=== PATIENT | female | born 1975 | race Caucasian/White ===

== ENCOUNTER 2018-03-02 14:42 | Emergency (ER) | payer BC ==
[2018-03-02 15:00] VITALS: BP 132/82
--- NOTE | 2018-03-02 15:17 | UC ---
UC General HPI - HPI Summary HPI Summary: PT C/O A SORE THROAT SINCE YESTERDAY WITH SOME WHITE SPOTS. ALSO NOTES HAS HAD A reyes AND SWOLLEN GLANDS. HX MONO IN 20'S. NO FEVER. R EAR PRESSURE. - History of Current Complaint Hx Obtained From: Patient Hx Last Menstrual Period: 01/31/18 Onset/Duration: Gradual Onset Timing: Constant Pain Intensity: 5 Aggravating: NOTHING Alleviating: NOTHING Associated Signs & Symptoms: Positive: Headache <Alexandria Mchugh - Last Filed: 03/02/18 15:07> <Troy Sloan - Last Filed: 03/02/18 17:53> - History of Current Complaint Chief Complaint: UCGeneralIllness Stated Complaint: SORE THROAT Time Seen by Provider: 03/02/18 15:06 - Allergy/Home Medications Allergies/Adverse Reactions: Allergies Allergy/AdvReac Type Severity Reaction Status Date / Time Penicillins Allergy Hives Verified 03/02/18 15:01 Home Medications: Home Medications Fluticasone NASAL SPRAY 50MCG* [Flonase NASAL SPRAY 50MCG*] 2 spray BOTH NARES DAILY 03/02/18 [History Confirmed 03/02/18] LevoCETirizine TAB (NF) [Xyzal TAB (NF)] 5 mg PO DAILY 03/02/18 [History Confirmed 03/02/18] Norethindrone AC-Eth Estradiol [Loestrin 1.5/30-21 1.5-30 mg-Mcg] 1 tab PO DAILY 03/02/18 [History Confirmed 03/02/18] PMH/Surg Hx/FS Hx/Imm Hx - Additional Past Medical History Additional PMH: allergies, post herpetic neuralgia GI/ History: Gastroesophageal Reflux Psychological History: Depression - Surgical History Surgical History: Yes Surgery Procedure, Year, and Place: R knee orthoscopic, c-sections x3,Rt hand from fracture with plate 1996 - Family History Known Family History: Positive: None - Social History Occupation: Employed Full-time Lives: With Family Alcohol Use: Daily Alcohol Amount: 2-3 glasses of wine Substance Use Type: None Smoking Status (MU): Never Smoked Tobacco - Immunization History Vaccination Up to Date: Yes <Alexandria Mchugh - Last Filed: 03/02/18 15:07> Review of Systems Constitutional: Negative Skin: Negative Eyes: Negative ENT: Sore Throat, Ear Ache Respiratory: Negative Cardiovascular: Negative Gastrointestinal: Negative Genitourinary: Negative Motor: Negative Neurovascular: Negative Musculoskeletal: Negative Neurological: Headache Psychological: Negative Is Patient Immunocompromised?: No All Other Systems Reviewed And Are Negative: Yes <Alexandria Mchugh - Last Filed: 03/02/18 15:07> Physical Exam Triage Information Reviewed: Yes Appearance: Well-Appearing Vital Signs: Initial Vital Signs Temp 99.1 F 03/02/18 14:56 Pulse 85 03/02/18 14:56 Resp 16 03/02/18 14:56 BP 132/82 03/02/18 14:56 Pulse Ox 98 03/02/18 14:56 Vital Signs Reviewed: Yes Eyes: Positive: Conjunctiva Clear ENT: Positive: Pharyngeal erythema, TMs normal, Uvula midline. Negative: Nasal congestion, Nasal drainage, Tonsillar exudate, Trismus, Muffled voice, Hoarse voice Neck: Positive: Supple, Tenderness @ - peritonsilar nodes, Enlarged Nodes @ - peritonsilar Respiratory: Positive: Lungs clear, Normal breath sounds Cardiovascular: Positive: RRR, No Murmur Abdomen Description: Positive: Nontender, No Organomegaly, Soft Bowel Sounds: Positive: Present Musculoskeletal: Positive: ROM Intact Neurological: Positive: Alert Psychological: Positive: Age Appropriate Behavior Skin Exam: Normal <Alexandria Mchugh - Last Filed: 03/02/18 15:07> Vital Signs: Initial Vital Signs Temp 99.1 F 03/02/18 14:56 Pulse 85 03/02/18 14:56 Resp 16 03/02/18 14:56 BP 132/82 03/02/18 14:56 Pulse Ox 98 03/02/18 14:56 <Troy Sloan - Last Filed: 03/02/18 17:53> Diagnostics - Laboratory Diagnostic Studies Completed/Ordered: rapid strep=neg <Alexandria Mchugh - Last Filed: 03/02/18 15:07> Course/Dx - Course Course Of Treatment: strep = neg, tx supportive - Differential Dx - Multi-Symptom Provider Diagnoses: pharyngitis <Alexandria Mchugh Last Filed: 03/02/18 15:07> Discharge - Sign-Out/Discharge Documenting (check all that apply): Discharge/Admit/Transfer - Billing Disposition and Condition Condition: STABLE Disposition: HOME <[email or web address] - Last Filed: 03/02/18 15:07> - Billing Disposition and Condition Condition: STABLE Disposition: HOME <Troy Sloan - Last Filed: 03/02/18 17:53> - Discharge Plan Condition: Stable Disposition: HOME Patient Education Materials: Pharyngitis (ED) Referrals: Devyn Butler MD [Primary Care Provider] - 5 Days Additional Instructions: Per institutional requirements, I have reviewed the chart, however, I was not consulted specifically or made aware of this patient by the above midlevel provider. I did not personally evaluate, interact with , or disposition this patient.
== END 2018-03-02 15:47 | disposition home or self-care (01) ==
LOC: UCCORT 14:42
DX: J02.9 Acute pharyngitis, unspecified (principal); Z88.0 Allergy status to penicillin
CPT/HCPCS: 87651; 99211; G0463

== ENCOUNTER 2018-10-10 09:28 | Emergency (ER) | payer BC ==
[2018-10-10 09:44] VITALS: BP 147/94
[2018-10-10] MEDS ORDERED: Acetaminophen TAB* 325 MG PO ONE (10:51)
--- NOTE | 2018-10-10 10:51 | UC ---
Headache HPI - HPI Summary HPI Summary: Pt presents with c/o sudden onset "horrible ROSS" that began during sexual intercourse yesterday. Pt reports that she has been taking ibuprofen with little to no improvement in ROSS. - History Of Current Complaint Chief Complaint: UCHeadache Stated Complaint: HEADACHE Time Seen by Provider: 10/10/18 10:15 Hx Obtained From: Patient Hx Last Menstrual Period: 09/12/18 ?: No Onset/Duration: Sudden Onset, Lasting Days, Still Present Onset Of Symptoms: Sudden Initially Headache Was: Severe Currently Pain Is: Moderate Pain Intensity: 5 Timing: Constant Character: Sharp, Dull, Throbbing, Pressure Location of Headache: Diffuse Aggravating Factor(s): Bright Lights Allevating Factor(s): Medication - otc ibuprofen helped minimally per pt Associated Signs And Symptoms: Positive: Neck Pain - Risk Factors SAH Risk Factors: Negative Meningitis Risk Factors: Negative SDH Risk Factors: Negative Temporal Arteritis Risk Factors: Female - Allergies/Home Medications Allergies/Adverse Reactions: Allergies Allergy/AdvReac Type Severity Reaction Status Date / Time Penicillins Allergy Hives Verified 10/10/18 09:43 Home Medications: Home Medications Acyclovir* [Zovirax 200 MG CAP*] 200 mg PO DAILY 10/10/18 [History Confirmed 08/18] PMH/Surg Hx/FS Hx/Imm Hx Previously Healthy: Yes - Surgical History Surgical History: Yes Surgery Procedure, Year, and Place: R knee orthoscopic, c-sections x3,Rt hand from fracture with plate 1996 - Family History Known Family History: Positive: Cardiac Disease - Social History Occupation: Employed Full-time Lives: With Family Alcohol Use: Daily Alcohol Amount: 2-3 glasses of wine Substance Use Type: None Smoking Status (MU): Never Smoked Tobacco Have You Smoked in the Last Year: No - Immunization History Vaccination Up to Date: Yes Review of Systems All Other Systems Reviewed And Are Negative: Yes Constitutional: Positive: Negative Skin: Positive: Negative Eyes: Positive: Photophobia ENT: Positive: Negative Respiratory: Positive: Negative Cardiovascular: Positive: Negative Gastrointestinal: Positive: Negative Genitourinary: Positive: Negative Motor: Positive: Negative Neurovascular: Positive: Negative Musculoskeletal: Positive: Negative Neurological: Positive: Headache Psychological: Positive: Negative Is Patient Immunocompromised?: No Physical Exam Triage Information Reviewed: Yes Appearance: Other: - pt is tearful, Vital Signs: Initial Vital Signs Temp 98.5 F 10/10/18 09:40 Pulse 105 10/10/18 09:40 Resp 18 10/10/18 09:40 BP 147/94 10/10/18 09:40 Pulse Ox 99 10/10/18 09:40 Vital Signs Reviewed: Yes Eye Exam: Normal - PERRLA ENT Exam: Normal Dental Exam: Normal Neck exam: Normal Respiratory Exam: Normal Cardiovascular: Positive: Tachycardia Musculoskeletal Exam: Normal Neurological Exam: Normal Psychological Exam: Normal Skin Exam: Normal Diagnostics - Radiology No standard instances Radiology Interpretation Completed By: Radiologist - IMPRESSION: #. Negative unenhanced head CT. Headache Course/Dx - Differential Dx/Diagnosis Differential Diagnosis/HQI/PQRI: Subarachnoid Hemorrhage, Temporal Arteritis, Tension Headache, Viral Syndrome Provider Diagnosis: Headache, Headache associated with orgasm Discharge - Sign-Out/Discharge Documenting (check all that apply): Patient Departure All imaging exams completed and their final reports reviewed: Yes - Discharge Plan Condition: Stable Disposition: HOME Prescriptions: Ibuprofen TAB* [Motrin TAB* 800 MG] 800 mg PO Q8H PRN #15 tab PRN Reason: Pain Patient Education Materials: Tension Headache (ED) Referrals: Devyn Butler MD [Primary Care Provider] - If Needed - Billing Disposition and Condition Condition: STABLE Disposition: Home
== END 2018-10-10 11:15 | disposition home or self-care (01) ==
LOC: UCCORT 09:28
DX: G44.84 Primary exertional headache (principal); Z88.0 Allergy status to penicillin
CPT/HCPCS: 70450; 99212; A9270-GY; G0463